=== PATIENT | female | born 1950 | race Caucasian/White ===

== ENCOUNTER 2016-08-24 07:19 | Observation (INO) | payer BC, OTHER ==
[2016-08-24] VITALS (12 sets, daily range): BP systolic 143–158; BP diastolic 64–78
[~2016-08-24] VITALS: Ht 165.1 cm; Wt 96.0 kg
--- NOTE | ~2016-08-24 | D ---
[facility] [place] [address] DISCHARGE SUMMARY Name: CAMRYN CHEW Room #: 208-P [facility] Kathleen#: [id number] Admission: 08/24/16 Attend Phys: Abhi Jones Discharge: 08/25/16 Date of : 46 Report #: [id number] THIS REPORT FOR: //name// CC: Adam Jones DATE OF SERVICE: 08/25/2016 ADMITTING DIAGNOSIS: Chest pain with abnormal noninvasive evaluation. DISCHARGE DIAGNOSES: 1. Coronary artery disease, 3-vessel. 2. Chronic deep venous thrombosis with chronic anticoagulation therapy. 3. Chronic pain syndrome. 4. Hypertension. Follow up with Dr. Jones in 4 weeks. PROCEDURES PERFORMED: 1. Left heart catheterization. 2. Percutaneous revascularization with a DORINA stent to the proximal RCA utilizing a Medtronic 2.5 x 18 mm stent dilated to 12 atmospheres. DISCHARGE MEDICATIONS: Home meds with the following exceptions: 1. No aspirin is to be consumed. 2. Plavix 75 mg p.o. q.a.m. DISCHARGE INSTRUCTIONS: 1. The patient to be very careful with bleeding and report any excessive bruising immediately. 2. No heavy lifting or straining for 48 hours. DISCHARGE DIET: [employer] step 1 diet. BRIEF CLINICAL HISTORY: See history and physical in the chart. HOSPITAL COURSE: The patient was admitted to the hospital, underwent cardiac catheterization. This demonstrated moderate left coronary artery lesions and a high grade proximal RCA. This was then dilated without complications. Her post-intervention course was unremarkable without any significant electrical or hemodynamic instability. The patient was subsequently allowed to ambulate without difficulty. She did state that she felt tremendously better from a standpoint of not having any recurrent chest discomfort. She is now being [facility] [address] [place] [address] DISCHARGE SUMMARY Name: CAMRYN CHEW Room #: 208-P [facility] Hernan Wang#: [id number] Admission: 08/24/16 Attend Phys: Abhi Jones Discharge: 08/25/16 Date of : 46 Report #: [id number] discharged in stable and improved condition to follow up with previously stated discharge instructions and medications. <ELECTRONICALLY SIGNED> By: Abhi Jones MD 08/25/16 1317 0851 0919 Abhi Jones MD /nt
--- NOTE | ~2016-08-24 | CATHLAB ---
[facility] [place] [address] INVASIVE PROCEDURE REPORT Name: CHEWCAMRYN SYLVIA Room #: 208-P [facility]#: [id number] Admission: 08/24/16 Attend Phys: Abhi Lopze Discharge: 08/25/16 Date of : 46 Date of Service: 08/24/16 2138 Report #: [id number] THIS REPORT FOR: //name// CC: Adam Jones DATE OF SERVICE: 08/24/2016 DATE OF PROCEDURE: 08/24/2016 PROCEDURES: 1. Left heart catheterization. 2. Selective left and right coronary angiography. 3. Measurement of left ventricular end diastolic pressures. 4. Percutaneous revascularization of the proximal right coronary artery with a 2.5 x 18 mm Resolute DORINA stent taken to 12 atmospheres. 5. Supervision of conscious sedation. INDICATIONS: This is a 66-year-old female patient with exertional chest discomfort and dyspnea with an abnormal noninvasive assessment. HIM CLERK: Abhi Jones MD BRIEF DESCRIPTION OF PROCEDURE: After informed consent was obtained, the patient was brought to the cardiac catheterization laboratory in stable condition. The patient's right groin was prepped and draped in the usual sterile manner after which lidocaine was then instilled. Utilizing a modified Seldinger technique, the right femoral artery was then accessed. Under fluoroscopic visualization using selective coronary catheters, the right and left coronaries were opacified and visualized. The left ventriculogram was likewise imaged per standard protocol with EDP being measured. Subsequent to this, the sheath was removed, hemostasis achieved. The patient tolerated the procedure well. There were no complications. Following angiography, it was felt the right coronary was critical and required revascularization. In view of this, 4-Maltese system was exchanged for a 5-Maltese system. Standard Kathrine right guide was then advanced under fluoroscopic visualization and cannulated with a right coronary ostium. Angiography was then performed as guider shots. A 0.014 mid intracoronary guidewire was then backloaded onto the stent and advanced under fluoroscopy. The wire was then advanced beyond the lesion in the right coronary artery without difficulty. The stent was then positioned to cover the high grade section as well as the moderate disease both proximal and distal to the lesion. Following numerous attempts at positioning appropriately, the device was deployed to 12 atmospheres. This was repeated. Results were excellent without any significant loss of side branches, disembolization or intraluminal thrombus. [address] [address] INVASIVE PROCEDURE REPORT Name: CAMRYN CHEWN Room #: 208-P [facility] IN M.R.#: [id number] Admission: 08/24/16 Attend Phys: Abhi Lopez Discharge: 08/25/16 Date of : 46 Date of Service: 08/24/16 2138 Report #: [id number] Wire, deployment balloon were removed. Final pressures were obtained. Final angiography was noted. The puncture site was then closed with the closure device without complications. The patient tolerated the procedure well. FINDINGS: 1. RHYTHM: The patient's rhythm was sinus throughout the entire procedure. 2. HEMODYNAMICS: A. Preprocedure aortic pressure 161/69. B. Left ventricular end diastolic pressures 30-35. C. Postprocedure aortic pressure 164/81. 3. FLUOROSCOPY: Under fluoroscopic visualization, there was evidence of calcific plaquing along the epicardial coronary arteries. No plaquing along the valvular or intramyocardial structures of the heart. 4. ANGIOGRAPHY: This is a right coronary dominant system. A. Left main is of normal origin and caliber, bifurcates into left anterior descending and left circumflex. There is a non-flow limiting 30-40% lesion noted in the left main. B. Left anterior descending is a moderate caliber vessel and has a proximal segment of approximately 50% stenosis. It gives rise to the first diagonal branch which has luminal irregularities of less than 50%. The LAD proper then continues in the anterior interventricular sulcus where there is a segment of 60% now, which does not appear to be flow limiting as it gives rise to septal and diagonal branches. hooks the apex and terminates in posterior aspect of the left ventricle. C. Left circumflex is a moderate caliber vessel, which courses posteriorly in the AV groove. It has a terminal region of bifurcation between marginal branches. There appears to be 50% lesion prior to this bifurcation. It is not flow limiting. The branches themselves have luminal irregularities of less than 50%. D. Right coronary artery is of normal origin and small to moderate caliber vessel, which is dominant. In its proximal portion, there is a segment of moderate disease culminated with a focal region of 90% stenosis. The vessel reconstitutes itself, continues in the AV groove posteriorly giving rise to posterior wall branches, posterior descending artery, which have luminal irregularities of less than 50% and are not flow limiting. E. Post revascularization angiography: The right coronary artery is unchanged except for the following at the site of previous high grade stenosis, the vessel is widely patent. There is no loss of side branch, disembolization, or intraluminal disruption noted. Flow is brisk at JOSIE 3. IMPRESSION: 1. Coronary artery disease, 3 vessel with significant right coronary artery lesion. [facility] [address] [place] [address] INVASIVE PROCEDURE REPORT Name: CAMRYN CHEW Room #: 208-P [facility] IN M.R.#: [id number] Admission: 08/24/16 Attend Phys: Abhi Lopez Discharge: 08/25/16 Date of : 46 Date of Service: 08/24/162137 Report #: [id number] 2. Successful percutaneous revascularization with a Medtronic Resolute DORINA stent 2.5 mm x 18 mm taken to 12 atmospheres. 3. Abnormal hemodynamics with elevated left ventricular end-diastolic pressures and systolic pressures. <ELECTRONICALLY SIGNED> By: Abhi Jones MD 08/25/16 1317 37 1237 Abhi Jones MD /nt
--- NOTE | ~2016-08-24 | EKG ---
[place] [address] [facility] [place] [address] ELECTROCARDIOGRAM REPORT Name: NICKY CHEWORAH SYLVIA Room #: 208-P [facility]..#: [id number] Admission: 08/24/16 Attend Phys: Abhi Jones Discharge: Date of : 46 Report #: [id number] THIS REPORT FOR: //name// [facility] Test Date: 2016-08-24 Test Time: 12:53:37 Pat Name: CAMRYN CHEW Department: Room: 208 P Gender: F Global Security Architect: Jono LEÓN : 1950 Requested By: Abhi Jones Order Number: [id number] MD: Timo Moore Measurements Intervals [place] Rate: 68 P: 60 [place]: 165 QRS: 13 QRSD: 96 T: 26 QT: 409 QTc: 436 Interpretive Statements Sinus rhythm Borderline T wave abnormalities No previous ECG available for comparison Electronically Signed On 08-25-2016 7:49:00 CDT by Timo Moore [email or web address] <ELECTRONICALLY SIGNED> By: Timo Moore MD, [facility] 08/25/16 0749 1253 1253 Timo Moore MD, FACC /EPI
--- NOTE | ~2016-08-24 | EKG ---
[address] [employer] [place] [address] ELECTROCARDIOGRAM REPORT Name: CAMRYN CHEW SYLVIA Room #: 208-P [facility]..#: [id number] Admission: 08/24/16 Attend Phys: Abhi Jones Discharge: Date of : 46 Report #: [id number] THIS REPORT FOR: //name// [facility] Test Date: 2016-08-25 Test Time: 06:33:02 Pat Name: CAMRYN CHEW Department: Room: 208 P Gender: F Pharmacist'S Aide: neelima : 1950 Requested By: Abhi Jones Order Number: [id number] MD: Timo Moore Measurements Intervals [place] Rate: 63 P: 69 [place]: 159 QRS: -1 QRSD: 95 T: 18 QT: 430 QTc: 441 Interpretive Statements Sinus rhythm Abnormal R-wave progression, early transition No previous ECG available for comparison Electronically Signed On 08-25-2016 8:02:59 CDT by Timo Moore [email or web address] <ELECTRONICALLY SIGNED> By: Timo Moore MD, [facility] 08/25/16 0802 D: 04/632 2 Timo Moore MD, FACC /EPI
--- NOTE | ~2016-08-24 | H ---
[facility] [address] [place] [address] HISTORY AND PHYSICAL Name: CAMRYN CHEW Room #: 208-P [facility] Hernan MBenoitRBenoit#: [id number] Admission: 08/24/16 Attend Phys: Abhi Jones Discharge: 08/25/16 Date of : 46 Report #: [id number] THIS REPORT FOR: //name// For History and Physical, please see office documentation/handwritten note in the patient's medical record. <ELECTRONICALLY SIGNED> By: Abhi Jones MD 08/29/16 1206 1028 Abhi Jones MD /
[2016-08-24] MEDS ORDERED: NORVASC 5 MG TAB5 MG PO (08:10)
[2016-08-24] MEDS ORDERED: BYSTOLIC 5 MG5 M1 PO (08:10)
[2016-08-24] MEDS ORDERED: CELEXA20 MG PO (08:11)
[2016-08-24] MEDS ORDERED: LASIX 20 MG TAB20 MG PO (08:12)
[2016-08-24] MEDS ORDERED: EPIPEN0.3 MG/0.1 IM (08:12)
[2016-08-24] MEDS ORDERED: HYDROCODONE-AP1 EAC6 PO (08:13)
[2016-08-24] MEDS ORDERED: COZAAR 50 MG TA50 M2 PO (08:14)
[2016-08-24] MEDS ORDERED: HYDROCORTISONE30 G9 RECTAL (08:14)
[2016-08-24] MEDS ORDERED: XARELTO20 MG PO (08:15)
[2016-08-24] MEDS ORDERED: KLOR-CON 1010 MEQ PO (08:15)
[2016-08-25 00:56] VITALS: BP 137/71
[2016-08-25 04:10] VITALS: BP 137/70
[2016-08-25 07:15] VITALS: BP 121/69
[2016-08-25] MEDS ORDERED: XARELTO10 MG PO (08:44)
[2016-08-25] MEDS ORDERED: BYSTOLIC10 MG PO (08:45)
[2016-08-25] MEDS ORDERED: AMLODIPINE BESYL5 M1 PO (08:46)
[2016-08-25] MEDS ORDERED: COZAAR100 MG PO (08:46)
[2016-08-25 08:54] VITALS: BP 121/69
[2016-08-25] MEDS ORDERED: NITROGLYCERIN0.4 MG SUBLING (08:59)
[2016-08-25] MEDS ORDERED: PLAVIX 75 MG TA75 MG PO (08:59)
== END 2016-08-25 10:54 | disposition home or self-care (01) ==
LOC: CATH 07:19 → 2N 12:03 → CATH 16:24 → 2N 08-25 10:54
DX: I25.810 Atherosclerosis of coronary artery bypass graft(s) without angina pectoris (principal); I10 Essential (primary) hypertension; I50.1 Left ventricular failure, unspecified; G89.29 Other chronic pain; I82.509 Chronic embolism and thrombosis of unspecified deep veins of unspecified lower extremity; Z79.01 Long term (current) use of anticoagulants

== ENCOUNTER → 2016-10-17 | Outpatient (CLI) | payer BC, OTHER ==
[~2016-10-17] MED LIST: AMLODIPINE BESYL5 M1 PO; BYSTOLIC 5 MG5 M1 PO; BYSTOLIC10 MG PO; CELEXA20 MG PO; COZAAR 50 MG TA50 M2 PO; COZAAR100 MG PO; EPIPEN0.3 MG/0.1 IM; HYDROCODONE-AP1 EAC6 PO; HYDROCORTISONE30 G9 RECTAL; KLOR-CON 1010 MEQ PO; LASIX 20 MG TAB20 MG PO; NITROGLYCERIN0.4 MG SUBLING; NORVASC 5 MG TAB5 MG PO; PLAVIX 75 MG TA75 MG PO; XARELTO10 MG PO; XARELTO20 MG PO
--- NOTE | ~2016-10-17 | EKG ---
[address] [place] [address] ELECTROCARDIOGRAM REPORT Name: CAMRYN CHEW SYLVIA Room #: REG [facility]#: [id number] Admission: 10/17/16 Attend Phys: Theodore Melissa MD Discharge: Date of : 46 Report #: [id number] THIS REPORT FOR: //name// [facility] Test Date: 2016-10-17 Test Time: 17:34:01 Pat Name: CAMRYN CHEW Department: Room: Gender: F Print Traffic Manager: Arlette CHEN : 1950 Requested By: Theodore Melissa Order Number: [id number] MD: Timo Moore Measurements Intervals [place] Rate: 65 P: 61 [place]: 158 QRS: 8 QRSD: 97 T: 5 QT: 391 QTc: 407 Interpretive Statements Sinus rhythm Borderline T wave abnormalities Compared to ECG 08/25/2016 06:33:02 T-wave abnormality now present Electronically Signed On 10-18-2016 8:49:59 CDT by Timo Moore [email or web address] <ELECTRONICALLY SIGNED> By: Timo Moore MD, [facility] 10/18/16 0849 1734 173 Timo Moore MD, [facility] /EPI
--- NOTE | ~2016-10-17 | EKG ---
[address] [place] [address] ELECTROCARDIOGRAM REPORT Name: JEEVANCAMRYN WARD Room #: REG [facility]#: [id number] Admission: 10/17/16 Attend Phys: Theodore Melissa MD Discharge: Date of : 46 Report #: [id number] THIS REPORT FOR: //name// [facility] Test Date: 2016-10-17 Test Time: 17:34:01 Pat Name: CAMRYN CHEW Department: Room: Gender: F Automotive Teacher: Arlette CHEN : 1950 Requested By: Theodore Melissa Order Number: [id number] MD: Measurements Intervals [place] Rate: 65 P: 61 PA: 158 QRS: 8 QRSD: 97 T: 5 QT: 391 QTc: 407 Interpretive Statements Sinus rhythm Borderline T wave abnormalities Compared to ECG 08/25/2016 06:33:02 T-wave abnormality now present [email or web address] By: 173 173 Epiphany Epiphany, /EPI
== END ==
LOC: CARD 17:33
DX: R94.31 Abnormal electrocardiogram [ECG] [EKG] (principal)

== ENCOUNTER → 2018-07-20 | Outpatient (CLI) | payer BC, OTHER ==
[~2018-07-20] VITALS: Ht 165.1 cm; Wt 82.6 kg
[~2018-07-20] MED LIST changes: +CELEBREX 200 M200 MG PO; +COZAAR 25 MG TA25 M1 PO; +CRESTOR10 MG PO; +MEDROLDOSEPACK PO
--- NOTE | ~2018-07-20 | HPC ---
[facility] [place] [address] PAIN MANAGEMENT CONSULTATION Name: CAMRYN CHEW Room #: REG [facility]enoit[facility]o.#: [id number] Admission: 07/20/18 ������������������ Attend Phys: Pooja Mack MD Discharge: ������������������ Date of : 46 Report #: [id number] THIS REPORT FOR: //name// CC: Adam Mack DATE OF SERVICE: 07/20/2018 CHIEF COMPLAINT: Right-sided rib pain. HISTORY: The patient is a 68-year-old female who has been referred to the Pain Clinic for evaluation of right-sided chest pain. The patient states that she has had been experiencing this pain since 03/13/2018. She underwent open heart surgery on 03/12/2018. There is an area to the right side of her chest bone. Pain is problematic with coughing, deep breathing and with movement of her arm. She denies any similar problems to this in the past. She denies any trauma to this area. She has tried hydrocodone and still notes discomfort. She states she has quite sensitivity to items. She has been sensitivity to TAPE. States that she has sensitivity to HAND LOTION. If she places on her hand is not problematic. If she places on her body notes some discomfort and skin irritation. She has tried Zanaflex to help with muscle spasms. Notes that her pain is worse when she is using her arms, jogging in activities of daily living. Describes a burning, crushing and sharp sensation. Rates it as a 2/10 at this juncture. It can rise anywhere from 2-5 depending on the activity. ALLERGIES: HYPERSENSITIVITY TO TAPE. MEDICATIONS: Nitroglycerin sublingual p.r.n., amlodipine 5 mg, Bystolic 10 mg, Xarelto 20 mg at dinnertime, hydrocortisone/Anusol hemorrhoid irritation, hydrocodone 5/325 q. 6 hours p.r.n., Crestor 10 mg, Cozaar 50 mg total. PAST MEDICAL HISTORY: Coronary artery disease, dyslipidemia, essential hypertension, deep vein thrombosis of the femoral vein, and aortic valve stenosis. PAST SURGICAL HISTORY: Aortic valve replacement, coronary artery bypass graft x 2, and finger surgery, 08/2017, arm surgery 07/22/2018 and the open heart surgery was 02/2018. SOCIAL HISTORY: She is not working. REVIEW OF SYSTEMS: Generally good health, fatigue, weakness, headaches, ear aches, drainage, chronic sinus problems, numbness and tingling sensation, bleeding and bruising tendency. LABORATORY DATA: No new laboratory values [place] [address] PAIN MANAGEMENT CONSULTATION Name: CAMRYN CHEW Room #: REG [facility] Kathleen#: [id number] Admission: 07/20/18 ������������������ Attend Phys: Pooja Mack MD Discharge: ������������������ Date of : 46 Report #: [id number] interview. PAIN CLINIC ASSESSMENT/PQRS: 1. History of arthritis, but left and right hand. The patient is not being treated for rheumatoid arthritis. 2. Height 5 feet 5 inches, weight 182 pounds, BMI is 30. 3. Vital signs: Blood pressure 120/55, pulse 64, respiratory rate 16, room air saturation is 96%. 4. Pain intensity, 10. 5. Fall risk. The patient has not fallen in the last 3 months. 6. Blood thinner. The patient is on a blood thinner, Xarelto of history of deep venous thrombosis. 7. Hypertension. The patient is being treated for hypertension. 8. Opioids greater than 6 weeks. The patient is receiving hydrocodone from her primary physician. 9. Risk assessment tool, low for opioid use. 10. Functional assessment tool, . 11. Recreational drug use. The patient denies use of recreational drugs except tobacco. The patient denies use of tobacco at this juncture. Occasionally uses alcoholic beverages on rare occasion, one glass of wine monthly. PHYSICAL EXAMINATION: GENERAL: The patient is a well-developed, well-nourished white female. Appears her stated age. She is alert and oriented x 3. Her affect is appropriate. Speech is fluent. HEENT: Normocephalic, atraumatic. Extraocular eye muscles intact. Sclerae nonicteric. Mucous membranes are moist. NECK: Without adenopathy or JVD. Upper extremity muscle strength is judged to be 5-/5 for the left and 4+/5 on the right. The patient notes some increased pain in the right chest area at approximately the T2-T3 costochondral areas near the midline near the sternum like pressure in this area reproduces the patient's pain and discomfort as a well healing scar in the midline of the sternum. HEART: Regular rate. ABDOMEN: Nontender. Bowel sounds present. The patient is without significant scoliosis, kyphosis or lordosis. Lower extremity muscle strength is judged to be 5-/5 for the major muscle groups in the lower extremity. The patient is without complaints of sensory changes. IMPRESSION: 1. Right-sided costochondritis that we hope that. 2. Coronary artery disease. 3. Dyslipidemia. 4. Essential hypertension. 5. Deep vein thrombosis of the femoral vein. 6. Aortic valve stenosis. [facility] [address] [place] [address] PAIN MANAGEMENT CONSULTATION Name: CAMRYN CHEW Room #: REG [facility]#: [id number] Admission: 07/20/18 ������������������ Attend Phys: Pooja Mack MD Discharge: ������������������ Date of : 46 Report #: [id number] RECOMMENDATIONS: We discussed treatment options with the patient. Risks and benefits of injection of this area with local anesthetic and cortisone were discussed. We have discussed the treatment using a conservative approach. The patient will try a Medrol Dosepak and take this for the next week. She will also use Celebrex. Oftentimes costochondritis can be treated in this fashion. If her pain continues to be problematic, she will return to the Pain Clinic, at which time, an injection in the area of the costochondritis areas can be performed. A script for her medications have been written. She will take 200 mg Celebrex every day, total of 2 weeks has been given. The patient will also take the Medrol Dosepak. We would like to thank you for letting us participate in her care. We hope she continues to improve. ��������������������������������������������� ���������������������������������������� By: ��������������������������������������������� 1313 0034 Pooja Mack MD /page
[2018-07-20 09:28] VITALS: BP 120/55
--- NOTE | 2018-07-20 09:53 | NUR ---
Pain Clinic Assessment: 1. History of Osteoarthritis: B/L HANDS History of Rheumatoid Arthritis: NONE 2. Height: 5 ft. 5 in. 165.1 cm. Weight: 182.0 lb. oz. 82.555 kg. Patient's BMI: 30.3 3. Vital Signs: BP: 120/55 Pulse: 64 Resp: 16 Temp: 02 Sat: 96 ECG Mon: 4. Pain Intensity: 2 5. Fall Risk: Dizziness: N Needs help standing or walking: N Fallen in the last 3 months: N Fall risk comments: 6. Patient on Blood Thinner: XERALTO 7. History of Hypertension: Y 8. Opioid Therapy greater than 6 weeks: N Opiate Contract Signed: 9. Risk Assessment Tool Provided: 10. Functional Assessment Tool: 11. Recreational Drug Use: Never Drug Type: Tobacco Use: Never Smoker Tobacco Type: Amount or Packs/day: How Many Years: Alcohol Use: Yes Frequency: Monthly Quant: 1 GLASS
== END ==
LOC: PAIN 06:43
DX: R07.81 Pleurodynia (principal); I25.10 Atherosclerotic heart disease of native coronary artery without angina pectoris; E78.5 Hyperlipidemia, unspecified; I10 Essential (primary) hypertension; I82.411 Acute embolism and thrombosis of right femoral vein; Z95.5 Presence of coronary angioplasty implant and graft; Z91.048 Other nonmedicinal substance allergy status; Z79.899 Other long term (current) drug therapy; Z79.891 Long term (current) use of opiate analgesic